=== PATIENT | female | born 1965 | race African-American/Black ===

== ENCOUNTER 2019-12-23 13:30 | Outpatient (CLI) | payer BC ==
--- NOTE | 2019-12-23 14:29 | RAD ---
EXAM: XR Lumbar Spine Min 4 View PROVIDED CLINICAL HISTORY: Low back pain COMPARISON: None FINDINGS: There are 5 nonrib-bearing lumbar-type vertebral bodies. Prominent facet hypertrophic changes are see n at the L4-5 level and to a lesser extent L5-S1 level. There is trace anterolisthesis of L4 on L5 measuring approximately 4 mm. Scattered osteophytes are seen involving the lumbar spine. Vertebral whitney dy heights are within normal limits. No fracture is identified. IMPRESSION: Degenerative changes lower lumbar spine with slight grade 1 anterolisthesis of L4 on L5 related to fa cet degenerative changes.
== END 2019-12-23 13:31 | disposition home or self-care (01) ==
LOC: BICRAD 13:30
PROVIDERS: ATTEND Internal Medicine Rheumatology
DX: M54.5 Low back pain (principal); M47.816 Spondylosis without myelopathy or radiculopathy, lumbar region; M43.16 Spondylolisthesis, lumbar region
CPT/HCPCS: 72110